=== PATIENT | male | born 1970 | race African-American/Black ===

== ENCOUNTER 2024-02-25 12:12 | Emergency (ER) | payer BC, SELFPAY ==
[2024-02-25 12:21] VITALS: BP 161/90; PULSE 91; RESP 18; TEMP 36.4; O2SAT 100
--- NOTE | 2024-02-25 12:28 | ED_ITS ---
HPI - URI/Sore Throat General Chief Complaint: Upper Respiratory Infection Stated Complaint: Cough/Numbness to Fingers on Right Hand Source: patient and RN notes reviewed Mode of arrival: ambulatory Limitations: no limitations History of Present Illness HPI Narrative: 53 y/o male presented for c/o cough, Headache,sinus pressure/congestion, fever/chills. Onset 3 days. Denies sob, wheezing, n/v/d. Taking Mucinex. MD elicited complaint: cough Related Data Home Medications ?Medication ?Instructions ?Recorded ?Confirmed ?Last Taken ?Type amlodipine 10 mg tablet 10 mg PO DAILY 02/25/24 Unknown History atorvastatin 40 mg tablet 40 mg PO QPM 02/25/24 Unknown History hydrochlorothiazide 12.5 mg tablet 12.5 mg PO Q12H 02/25/24 Unknown History losartan 100 mg tablet 100 mg PO DAILY 02/25/24 Unknown History Allergies Allergy/AdvReac Type Severity Reaction Status Date / Time No Known Allergies Allergy Verified 02/25/24 12:38 Review of Systems Review of Systems: CONSTITUTIONAL: Endorses malaise, chills, sweats, denies fever EYES: Denies visual changes, redness, or discharge ENT: Reports rhinorrhea, congestion, denies sinus pain, otalgia, sore throat CARDIOVASCULAR: Denies chest pain, palpitations, edema RESPIRATORY: Reports cough, post nasal drainage. Denies dyspnea GASTROINTESTINAL: Denies abdominal pain, nausea, vomiting, diarrhea SKIN: Denies rash or itching MUSCULOSKELETAL: Denies myalgia Exam Narrative: GENERAL: mildly Ill-appearing, nontoxic no acute distress. EYES: PERRLA, conjunctivae clear ENT: Mucous membranes moist. TM pearly treviño with dull light reflex bilaterally; no tragal tenderness. Oropharynx not erythematous without lesions or exudate, no drooling, no hoarse ness, no trismus, uvula midline. No tripod positioning, muffled voice, soft palate or pharyngeal wall bulging NECK: Supple. No lymphadenopathy CHEST: Clear to auscultation, breath sounds equal. No wheezing, rhonchi, rales, or stridor. No respiratory distress, speaks in full sentences. HEART: Regular rate and rhythm. No murmur heard. SKIN: Warm, dry, no rash. NEURO: Alert and oriented x3. PSYCH: Normal mood and affect Course Course Emergency Course: Patient is aware of diagnosis, understands and agrees to treatment plan. Anticipatory guidance given. Patient agrees to follow-up as directed and is aware of reasons to seek care at the emergency department. Portions of this record may have been created with voice recognition software Level of Care: Express Care Visit Vital Signs Vital signs: Vital Signs Temperature 97.5 F L 02/25/24 12:21 Pulse Rate 91 02/25/24 12:21 Respiratory Rate 18 02/25/24 12:21 Blood Pressure 161/90 H 02/25/24 12:21 Pulse Oximetry 100 02/25/24 12:21 Oxygen Delivery Room Air 02/25/24 12:21 Temperature 97.5 F L 02/25/24 12:21 Pulse Rate 91 02/25/24 12:21 Respiratory Rate 18 02/25/24 12:21 Blood Pressure 161/90 H 02/25/24 12:21 Pulse Oximetry 100 02/25/24 12:21 Oxygen Delivery Room Air 02/25/24 12:21 reviewed MDM - URI/Sore Throat MDM Narrative Medical decision making narrative: positive influenza. Discussed physical exam findings. Advised supportive measures and signs/symptoms to go to the ER. Pt is appropriate for outpt treatment and f/u. Differential Diagnosis Differential diagnosis: Likely upper respiratory infection, sinusitis and viral infection Discharge Plan Discharge Clinical Impression: Influenza Patient Disposition: Home, Self-Care Condition: Stable Instructions: Antibiotic Form, Influenza (ED) Additional Instructions: Your blood pressure reading was elevated (above 120/80) please follow-up with your primary care provider for further evaluation and management. If you develop worsening Blood Pressure symptoms, (headache, vision changes, dizziness, vomiting, chest pain, etc) go to the ER. Call 911. Influenza positive You should avoid crowds until you are fever free for 24 hours without the use of fever reducing medications, or the symptoms are improved Rest. Drink plenty of fluids. Tylenol 1000mg every 8 hours as needed for pain/fever Recommend Flonase spray and Zyrtec (or Claritin/Allyn) for sinus pressure/congestion over the counter Cough syrup may cause drowsiness; avoid driving or take it at night time. Coricidin HBP if you have hypertension Follow up with your primary care provider as needed Go to the ER for worsening symptoms or concerns Patient Language: Mozambican Follow-up/Referrals: UNKNOWN,DOCTOR [Primary Care Provider] - Stand Alone Forms: Work/School Release IP Time of Disposition: 12:46
[2024-02-25 12:46] LABS: EDCOVIDSCREEN Negative (Negative); EDINFLUASCREEN Positive (Negative); EDINFLUBSCREEN Negative (Negative)
[2024-02-25 12:48] LABS: EDCOVIDSCREEN Negative (Negative); EDINFLUASCREEN Positive (Negative); EDINFLUBSCREEN Negative (Negative)
--- OUTSIDE RECORDS SUMMARY | 2024-03-01 08:59 | XMS_ITS | Referral Summary ---
Author Organization [facility] Address [address] [place] [address] Care Team Providers Care Rate Analyst Name Role Phone Juan C Marie MD Primary Care Provider + Allergies No known active allergies Medications amLODIPine (NORVASC) 10 mg tabletIndicatio ns:hypertension Take 1 tablet (10 mg total) by mouth daily Active atorvastatin (LIPITOR) 40 mg tabletIndicatio ns:arterioscler otic vascular disease Take 1 tablet (40 mg total) by mouth daily Active hydrALAZINE (APRESOLINE) 25 mg tabletIndicatio ns:hypertension Take 1 tablet (25 mg total) by mouth 3 (three) times a day as needed (Systolic blood pressure (top number) 160 or higher.) 90 tablet 03/05/2023 Active Active Problems Problem Noted Date Diagnosed Date Hypertension 03/05/2023 SADE (acute kidney injury) 03/05/2023 Dizziness 03/04/2023 Immunizations Name Administration Dates Next Due Influenza, Unspecified 12/02/2022 Social History Tobacco Use Types Packs/Day Years Used Date Smoking Tobacco: Every Day Cigarettes Tobacco Cessation:Ready to Q uit: No; Counseling Given: No AUDIT-C Answer Date Recorded Q1: How often do you have a drink containing alc ohol? Never 03/05/2023 Average Number of Drinks Not on file 024 Frequency of Binge Drinking Not on file 02/08 Personal Safety Answer Date Recorded Have you ever been in or are you currently in a harmful physical or emotional relationship or is someone making you feel afraid or unsafe? Denies 08/22/2023 Sex and Gender Information Value Date Recorded Sex Assigned at Not on file Legal Sex Male 2:27 PM [id number] [employer] Gender Identity Not on file Sexual Orientation Not on file Last Filed Vital Signs Vital Sign Reading Time Taken Comments Blood Pressure 150/94 08/22/2023 7:42 AM CDT Pulse 52 08/22/2023 9:45 AM CDT Temperature 36 ??C (96.8 ??F) 08/22/2023 7:41 AM CDT Respiratory Rate 15 08/22/2023 7:42 AM CDT Oxygen Saturation 100% 08/22/2023 9:45 AM CDT Inhaled Oxygen Concentration - - Weight 88.5 kg (195 lb) 08/22/2023 7:42 AM CDT Height 175.3 cm (5' 9 ) 08/22/2023 7:42 AM CDT Body Mass Index 28.8 08/22/2023 7:42 AM CDT Plan of Treatment Not on file Insurance [facility] [place] [id number] Advance Directives For more information, please contact: [phone] * Full Code (Latest Code Status on File) Date Activated Date Inactivated Comments 03/04/2023 10:13 PM 03/05/2023 8:34 PM Care Teams Rate Analyst Relationship Specialty Start Date End Date Juan C Marie MD [address] [place] [address] [facility] [address] [place] [address] PCP - General Family Medicine 03/16/23
--- OUTSIDE RECORDS SUMMARY | 2024-03-01 08:59 | XMS_ITS | Patient Health Summary ---
Author Organization [facility] [employer] Address [address] [place] [address] Care Team Providers Care Endoscopy Nurse Name Role Phone Angélica Moser SUPERVISOR EDGING-EDGE SAWYER Unavailable [phone]- [phone] Note from [facility],non-owned Affiliates and Associated Physician Practices is amultiple site organization consisting of ambulatory clinics and hospital sitesin [place], [place], [place] and [place]. This disclosure is being madepursuant to the Care Everywhere program and may not contain all information available regarding this patient. Last updated 17.[facility] [employer] Allergies No known active allergies Medications * Be aware that medications may not be up to date on this document. Alwaysverify current medications with the patient. * nicotine (NICODERM CQ) 14 MG/24HR patch(Started 02/01/2018) Apply 1 patch to skin once daily Reasons: Nicotine Addiction * NIFEdipine CR 24hr (ADALAT CC) 90 MG tablet(Started 02/01/2018) Take 1 tablet by mouth once daily Take on an empty stomach. 2 refills remaining * hydrALAZINE (APRESOLINE) 25 MG tablet(Started 02/01/2018) Take 1 tablet by mouth 2 times daily 2 refills remaining Active Problems Problem Noted Date Diagnosed Date Hypertension 02/01/2018 CKD (chronic kidney disease) stage 3, GFR 30-59 ml/min 02/01/2018 Dizziness 01/26/2018 Hypertensive urgency 01/26/2018 Social History Tobacco Use Types Packs/Day Years Used Date Smoking Tobacco: Every Day Cigarettes Smokeless Tobacco: Never Tobacco Cessation:Ready to Q uit: No; Counseling Given: Yes Alcohol Use Standard Drinks/Week Comments No 0 (1 standard drink = 0.6 oz pur e alcohol) Sex and Gender Information Value Date Recorded Sex Assigned at Not on file Gender Identity Not on file Sexual Orientation Not on file Last Filed Vital Signs Vital Sign Reading Time Taken Comments Blood Pressure 158/100 02/01/2018 4:27 PM TELEPATHIST Pulse 86 02/01/2018 4:27 PM TELEPATHIST Temperature 36.8 ??C (98.3 ??F) 02/01/2018 4:27 PM CS T Respiratory Rate 16 01/28/2018 6:53 AM TELEPATHIST Oxygen Saturation 99% 02/01/2018 4:27 PM TELEPATHIST Inhaled Oxygen Concentration - - Weight 91.2 kg (201 lb) 02/01/2018 4:27 PM TELEPATHIST Height 175.3 cm (5' 9 ) 02/01/2018 4:27 PM TELEPATHIST Body Mass Index 29.68 02/01/2018 4:27 PM TELEPATHIST Procedures * CARDIAC EKG ORDER(Performed 01/30/2018) * CARDIAC RHYTHM STRIP ORDER(Performed 01/30/2018) * BASIC METABOLIC PANEL (CALCIUM TOTAL)(Performed 01/28/2018) Performed for Hypertensive urgency * URINE MICROSCOPIC ONLY REFLEX TO CULTURE(Performed 01/26/2018) * URINALYSIS REFLEX MICROSCOPIC REFLEX CULTURE(Performed 01/26/2018) * CULTURE URINE(Performed 01/26/2018) * XR CHEST 1VW PORTABLE(Performed 01/26/2018) Performed for Dizziness * EKG 12-LEAD(Performed 01/26/2018) Performed for Dizziness * TROPONIN I(Performed 01/26/2018) * COMPREHENSIVE METABOLIC PANEL(Performed 01/26/2018) * CBC W AUTO DIFFERENTIAL(Performed 01/26/2018) Results * CARDIAC EKG ORDER (01/30/2018 11:45 AM TELEPATHIST) Narrative 01/30/2018 11:45 AM TELEPATHIST Ordered by an unspecified provider. Scanned Document CARDIAC SERVICES ORD ERABLES * CARDIAC RHYTHM STRIP ORDER (01/30/2018 10:32 AM TELEPATHIST) Narrative 01/30/2018 10:32 AM TELEPATHIST Ordered by an unspecified provider. Scanned Document CARDIAC SERVICES ORD ERABLES * (ABNORMAL) BASIC METABOLIC PANEL (CALCIUM TOTAL) (01/28/2018 4:46 AM TELEPATHIST) [employer] Signature Glucose 102 70 - 125 mg/dL 01/28/2018 5:31 AM TELEPATHIST [facility] Sodium 139 136 - 145 mmol/L 01/28/2018 5:[address] [facility] Potassium 4.5 3.4 - 4.5 mmol/L 01/28/2018 5:[address] [facility] Chloride 104 98 - 107 mmol/L 01/28/2018 5:[address] [facility] CO2 26 22 - 29 mmol/L 01/28/2018 5:[address] [facility] Calcium 9.7 8.4 - 10.2 mg/dL 01/28/2018 5:[address] [facility] Anion Gap 14 10 - 20 mmol/L 01/28/2018 5:[address] [facility] BUN 13.9 8.4 - 25.7 mg/dL 01/28/2018 5:[address] [facility] Creatinine 1.67(H) 0.72 - 1.25 mg/dL 01/28/2018 5:[address] [facility] eGFR by MDRD 44(L) >60 mL/min/1.7 3m2 01/28/2018 5:[address] [facility] eGFR by MDRD 53(L) >60 mL/min/1.7 3m2 01/28/2018 5:[address] [facility] Blood BLOOD SPECIMEN / Unknown Lab Venipuncture / Unknown 01/28/2018 4:46 AM TELEPATHIST 01/28/2018 5:11 AM [facility] Shavon Hodgson MD LAB - CHEMISTRY PHIL HOLLOWAY [facility] Organization Address [facility]/State/[facility] Co de Phone Number [facility] [address] * (ABNORMAL) URINE MICROSCOPIC ONLY REFLEX TO CULTURE (01/26/2018 6:01 PM [facility]) Reflex Status Culture to follow 01/26/2018 6:[address] [facility] RBC UA 11-20(A) None Seen, 0-2, 3-5 # /hpf 01/26/2018 6:[address] [facility] WBC UA 11-20(A) None Seen, 0-5 # /hpf 01/26/2018 6:[address] [facility] Bacteria UA None Seen None Seen 01/26/2018 6:[address] [facility] Squamous Epithelial Cells 0-2 None Seen, 0-2, 3-5 /hpf 01/26/2018 6:[address] [facility] Mucus UA 1+ /LPF 01/26/2018 6:[address] [facility] Urine URINE SPECIMEN OBTAINED BY CLEAN CATCH PROCEDURE / Unknown Collection / Unknown 01/26/2018 6:01 PM TELEPATHIST 01/26/2018 6:06 PM [facility] Narrative [facility] - 01/26/2018 6:14 PM TELEPATHIST Gay Mendez SUPERVISOR EDGING-EDGE SAWYER LAB - URINALY SIS ORDERABLES Performing Organization Address City/State/[facility] Co de Phone Number [facility] [address] * (ABNORMAL) URINALYSIS REFLEX MICROSCOPIC REFLEX CULTURE (01/26/2018 6:01 PM [facility]) Color UA Yellow Straw, Yellow 01/26/2018 6:[address] [facility] Clarity UA Slt Cloudy(A) Clear 01/26/2018 6:[address] [facility] Glucose UA Negative Negative 01/26/2018 6:[address] [facility] Bilirubin UA Negative Negative 01/26/2018 6:[address] [facility] Ketone UA Negative Negative 01/26/2018 6:[address] [facility] Specific [place] UA 1.017 1.005 - 1.030 01/26/2018 6:[address] [facility] Blood UA Negative Negative 01/26/2018 6:[address] [facility] pH UA 6.0 5.0 - 8.0 pH 01/26/2018 6:[address] [facility] Protein UA Negative Negative 01/26/2018 6:[address] [facility] Urobilinogen UA Negative Negative mg/dL 01/26/2018 6:[address] [facility] Nitrite UA Negative Negative 01/26/2018 6:[address] [facility] Leukocyte UA 1+(A) Negative 01/26/2018 6:[address] [facility] Urine Microscopy Urine microscopy to follow 01/26/2018 6:[address] [facility] Urine URINE SPECIMEN OBTAINED BY CLEAN CATCH PROCEDURE / Unknown Collection / Unknown 01/26/2018 6:01 PM TELEPATHIST 01/26/2018 6:06 PM [facility] Narrative [facility] - 01/26/2018 6:13 PM [facility] Ascorbic Acid can cause false negative urine strip tests for blood, glucose, nitrite, and bilirubin. Gay Mendez APRNGISELA LAB - URINALY SIS ORDERABLES Performing Organization Address City/[facility]/ZIP Co de Phone Number [facility] [address] * CULTURE URINE (01/26/2018 6:01 PM TELEPATHIST) Pathologist [facility] Culture Urine No growth day 2 [facility] 01/28/2018 9:55 AM TELEPATHIST [facility] Urine URINE SPECIMEN OBTAINED BY CLEAN CATCH PROCEDURE / Unknown Collection / Unknown 01/26/2018 6:01 PM TELEPATHIST 01/26/2018 6:06 PM TELEPATHIST [facility] - MICROBI OLOGY ORDERABLES Performing Organization Address [facility] de Phone Number [facility] [address] * XR CHEST 1VW PORTABLE (01/26/2018 4:27 PM TELEPATHIST) Anatomical Region Laterality Modality Chest Radiographic Bailey ging 01/26/2018 4:36 PM TELEPATHIST Narrative 01/26/2018 4:36 PM TELEPATHIST IMAGING STUDIES: XR CHEST 1VW PORTABLE EXAM DATE/TIME: 01/26/2018 4:28 PM COMPARISON STUDIES: No previous available CLINICAL HISTORY: Dizziness and giddiness. FINDINGS AND IMPRESSION: 1.The cardiomediastinal silhouette is not enlarged. ??. 2.Lungs are clear.. 3.No pleural effusion or pneumothorax.. 4.No significant bony abnormalities. Procedure Note Andrew Nelson MD - 01/26/2018 IMAGING STUDIES: XR CHEST 1VW PORTABLE EXAM DATE/TIME: 01/26/2018 4:28 PM COMPARISON STUDIES: No previous available CLINICAL HISTORY: Dizziness and giddiness. FINDINGS AND IMPRESSION: 1.The cardiomediastinal silhouette is not enlarged. . 2.Lungs are clear.. 3.No pleural effusion or pneumothorax.. 4.No significant bony abnormalities. Gay Mendez [facility] IM AGING ORDERABLES * EKG 12-LEAD (01/26/2018 3:47 PM TELEPATHIST) [facility] Ventricular Rate 65 BPM [facility] Atrial Rate 65 BPM [facility] P-R Interval 154 ms [facility] QRS Duration ms 116 ms [facility] Q-T Interval ms 382 ms [facility] QTC Calculation (Bezet) 397 ms [facility] Calculated P [place] 21 degrees [facility] Calculated R [place] -32 degrees [facility] Calculated T [place] -32 degrees [facility] Interpretation EKG NORMAL SINUS RHYTHM WITH SINUS ARRHYTHMIA LEFT AXIS DEVIATION LEFT VENTRICULAR HYPERTROPHY WITH QRS WIDENING ABNORMAL ECG NO PREVIOUS ECGS AVAILABLE Confirmed by HARRY GUERRERO MD ([id number]), department editor PARVEZ TAVERA ([id number]) on 01/27/2018 8:41:59 AM [facility] 01/26/2018 3:47 PM TELEPATHIST 01/27/2018 8:41 AM TELEPATHIST Gay Mendez APRN-EDGE SAWYER ECG ORDERABLE S [facility] * TROPONIN I (01/26/2018 3:38 PM TELEPATHIST) [facility] Troponin I <0.012 <=0.049 ng/mL 01/26/2018 8:10 PM TELEPATHIST [facility] Blood BLOOD SPECIMEN / Unknown Venipuncture / Unknown 01/26/2018 3:38 PM TELEPATHIST 01/26/2018 7:53 PM TELEPATHIST Narrative [facility] - 01/26/2018 8:10 PM TELEPATHIST Note: Diagnosis of myocardial infarction requires symptoms of ischemia or EKG changes of ischemia and Troponin I >99th percentile of normal with <10% coefficient of variation (CV) (0.05 ng/mL) Troponin should be drawn on initial assessment and 3-6 hours later as clinically indicated. Any condition resulting in myocardial cell damage can increase cardiac troponin levels. In addition to myocardial infarction, these include but are not limited to congestive heart failure, arrhythmia, myocarditis, and non-cardiac related causes such as pulmonary embolism, renal failure and sepsis. Gay Mendez APRN-EDGE SAWYER LAB - SHEEP FARMER RY ORDERABLES [facility] [address] * (ABNORMAL) CBC W AUTO DIFFERENTIAL (01/26/2018 3:38 PM [facility]) [facility] WBC 6.1 4.0 - 10.0 x10E9/L 01/26/2018 3:[address] [facility] RBC 4.69 4.40 - 6.10 x10E12/L 01/26/2018 3:[address] [facility] Hemoglobin 13.9 13.7 - 17.5 gm/dL 01/26/2018 3:[address] [facility] Hematocrit 40.8 40.1 - 51.0 % 01/26/2018 3:[address] [facility] MCV 87.0 78.0 - 100.0 fl 01/26/2018 3:[address] [facility] MCH 29.6 25.6 - 34.0 pg 01/26/2018 3:[address] [facility] MCHC 34.1 32.3 - 36.5 gm/dL 01/26/2018 3:[address] [facility] RDW 14.1 11.6 - 14.4 % 01/26/2018 3:[address] [facility] MPV 10.2 9.4 - 12.4 fl 01/26/2018 3:[address] [facility] Platelet Count 187 163 - 369 x10E9/L 01/26/2018 3:[address] [facility] Neutrophils % 49.7 40.0 - 75.0 % 01/26/2018 3:[address] [facility] Lymphocytes % 43.9 19.3 - 53.1 % 01/26/2018 3:[address] [facility] Monocytes % 4.2(L) 4.7 - 12.5 % 01/26/2018 3:[address] [facility] Eosinophils % 1.8 0.7 - 7.0 % 01/26/2018 3:[address] [facility] Basophils % 0.2 0.1 - 1.2 % 01/26/2018 3:[address] [facility] Immature Granulocytes 0.2 0 - 0.5 % 01/26/2018 3:[address] [facility] Neutrophil Absolute 3.05 1.56 - 6.13 x10E9/L 01/26/2018 3:[address] [facility] Lymphocytes Absolute 2.69 1.18 - 3.74 x10E9/L 01/26/2018 3:[address] [facility] Monocytes Absolute 0.26 0.24 - 0.86 x10E9/L 01/26/2018 3:[address] [facility] Eosinophils Absolute 0.11 0.04 - 0.54 x10E9/L 01/26/2018 3:[address] [facility] Basophils Absolute 0.01 0.01 - 0.08 x10E9/L 01/26/2018 3:[address] [facility] Immature Granulocytes Absolute 0.01 0 - 0.03 x10E9/L 01/26/2018 3:[address] [facility] nRBC Auto 0 <=0 /100 WBC 01/26/2018 3:[address] [facility] nRBC Absolute 0.00 <=0 x10E9/L 01/26/2018 3:[address] [facility] Blood BLOOD SPECIMEN / Unknown Venipuncture / Unknown 01/26/2018 3:38 PM TELEPATHIST 01/26/2018 3:49 PM [facility] Gay Mendez SUPERVISOR EDGING-EDGE SAWYER LAB - HEMATOL OGY ORDERABLES Performing Organization Address [facility] Co de Phone Number [facility] [address] * (ABNORMAL) COMPREHENSIVE METABOLIC PANEL (01/26/2018 3:38 PM TELEPATHIST) [employer] Signature Glucose 87 70 - 125 mg/dL 01/26/2018 4:[address] [facility] Sodium 142 136 - 145 mmol/L 01/26/2018 4:[address] [facility] Potassium 4.3 3.4 - 4.5 mmol/L 01/26/2018 4:[address] [facility] Chloride 108(H) 98 - 107 mmol/L 01/26/2018 4:[address] [facility] CO2 23 22 - 29 mmol/L 01/26/2018 4:[address] [facility] Calcium 9.1 8.4 - 10.2 mg/dL 01/26/2018 4:[address] [facility] Anion Gap 15 10 - 20 mmol/L 01/26/2018 4:[address] [facility] BUN 17.7 8.4 - 25.7 mg/dL 01/26/2018 4:[address] [facility] Creatinine 1.46(H) 0.72 - 1.25 mg/dL 01/26/2018 4:[address] [facility] eGFR by MDRD 52(L) >60 mL/min/1.7 3m2 01/26/2018 4:[address] [facility] eGFR by MDRD >60 >60 mL/min/1.7 3m2 01/26/2018 4:[address] [facility] Alkaline Phosphatase 58 40 - 150 U/L 01/26/2018 4:[address] [facility] ALT 23 5 - 55 U/L 01/26/2018 4:[address] [facility] AST 19 5 - 34 U/L 01/26/2018 4:[address] [facility] Protein Total 7.2 6.4 - 8.3 gm/dL 01/26/2018 4:[address] [facility] Albumin 3.6 3.5 - 5.0 gm/dL 01/26/2018 4:[address] [facility] Globulin Total 3.6 2.6 - 4.0 gm/dL 01/26/2018 4:[address] [facility] Albumin/Globulin Ratio 1.0 0.9 - 1.6 01/26/2018 4:[address] [facility] Bilirubin Total 0.3 0.2 - 1.2 mg/dL 01/26/2018 4:[address] [facility] Blood BLOOD SPECIMEN / Unknown Venipuncture / Unknown 01/26/2018 3:38 PM TELEPATHIST 01/26/2018 3:49 PM TELEPATHIST Gay Mendez APRN-EDGE SAWYER LAB - SHEEP FARMER RY ORDERABLES Performing Organization Address [facility]/State/[facility] de Phone Number [facility] [address] Care Teams Endoscopy Nurse Relationship Specialty Start Date End Date Angélica Moser APRN-EDGE SAWYER [address] [place] [address] PCP - Attributed-BCBS Medicaid [place] 12/08/21
--- OUTSIDE RECORDS SUMMARY | 2024-03-01 08:59 | XMS_ITS | Referral Summary ---
Author Organization [facility] [employer] Address [address] [place] [address] Care Team Providers Care Business Process Manager Name Role Phone Angélica Moser UPHOLSTERY CUTTER-ROLLER MACHINE OPERATOR Unavailable [phone] Source Comments [facility] [employer],non-owned Affiliates and Associated Physician Practices is amultiple site organization consisting of ambulatory clinics and hospital sitesin [place], [place], [place] and [place]. This disclosure is being madepursuant to the Care Everywhere program and may not contain all information available regarding this patient. Last updated 17.[facility] [employer] Allergies No known active allergies Medications * Be aware that medications may not be up to date on this document. Alwaysverify current medications with the patient. Medication Sig Dispensed Refills Start Date End Date Status nicotine (NICODERM CQ) 14 MG/24HR patchIndications:Edward otine Dependence Apply 1 patch to skin once daily Reasons: Nicotine Addiction 30 patch 02/01/2018 Active NIFEdipine CR 24hr (ADALAT CC) 90 MG tablet Take 1 tablet by mouth once daily Take on an empty stomach. 30 tablet 2 02/01/2018 Active hydrALAZINE (APRESOLINE) 25 MG tablet Take 1 tablet by mouth 2 times daily 60 tablet 2 02/01/2018 Active Active Problems Problem Noted Date Diagnosed [...] Comments Blood Pressure 158/100 02/01/2018 4:27 PM BUNDLE PACKER Pulse 86 02/01/2018 4:27 PM [facility] Temperature 36.8 ??C (98.3 ??F) 02/01/2018 4:27 PM CS T Respiratory Rate 16 01/28/2018 6:53 AM BUNDLE PACKER Oxygen Saturation 99% 02/01/2018 4:27 PM BUNDLE PACKER Inhaled Oxygen Concentration - - Weight 91.2 kg (201 lb) 02/01/2018 4:27 PM BUNDLE PACKER Height 175.3 cm (5' 9 ) 02/01/2018 4:27 PM BUNDLE PACKER Body Mass Index 29.68 02/01/2018 4:27 PM BUNDLE PACKER Functional Status Functional Status Response Date of Assess ment Is person deaf or have serious hearing difficult y? No 01/28/2018 Is person blind or have serious difficulty seein g? No 01/28/2018 Does person have serious dif ficulty walking/climbing stairs? No 01/28/2018 Does person have difficulty dressing/bathing? No 01/28/2018 Does person have difficulty doing errands alone? No 01/28/2018 Cognitive Status Response Date of Assessm ent Does person have difficulty concentrating/remembering/making decisions? No 01/28/2018 Plan of Treatment Not on file Procedures Procedure Name Priority Date/Time Associated Diagnosis Comments BASIC METABOLIC PANEL (CALCIUM TOTAL) AM Draw 01/28/2018 4:46 AM [facility] Hypertensive urgency from Last 3 Months or Most Recently Relevant to Health Maintenance Results * (ABNORMAL) BASIC METABOLIC PANEL (CALCIUM TOTAL) (01/28/2018 4:46 AM [facility]) [facility] Glucose 102 70 - 125 mg/dL 01/28/2018 5:31 AM [facility] Sodium 139 136 - 145 mmol/L 01/28/2018 5:31 AM [facility] Potassium 4.5 3.4 - 4.5 mmol/L 01/28/2018 5:31 AM [facility] Chloride 104 98 - 107 mmol/L 01/28/2018 5:31 AM [facility] CO2 26 22 - 29 mmol/L 01/28/2018 5:31 AM [facility] Calcium 9.7 8.4 - 10.2 mg/dL 01/28/2018 5:31 AM [facility] Anion Gap 14 10 - 20 mmol/L 01/28/2018 5:31 AM [facility] BUN 13.9 8.4 - 25.7 mg/dL 01/28/2018 5:31 AM [facility] Creatinine 1.67(H) 0.72 - 1.25 mg/dL 01/28/2018 5:31 AM [facility] eGFR by MDRD 44(L) >60 mL/min/1.7 3m2 01/28/2018 5:31 AM [facility] eGFR by MDRD 53(L) >60 mL/min/1.7 3m2 01/28/2018 5:31 AM [facility] Blood BLOOD SPECIMEN / Unknown Lab Venipuncture / Unknown 01/28/2018 4:46 AM BUNDLE PACKER 01/28/2018 5:11 AM [facility] Shavon Hodgson MD LAB - CHEMISTRY PHIL HOLLOWAY [facility] Organization Address City/State/[facility] Co de Phone Number [facility] [address] from Last 3 Months or Most Recently Relevant to Health Maintenance Advance Directives * Full Code (Latest Code Status on File) Date Activated Date Inactivated Comments 01/26/2018 10:03 PM 01/28/2018 11:26 AM Care Teams Business Process Manager Relationship Specialty Start Date End Date Angélica Moser, UPHOLSTERY CUTTER-ROLLER MACHINE OPERATOR [address] [place] [address] PCP - Attributed-BCBS Medicaid [place] 12/08/21
--- OUTSIDE RECORDS SUMMARY | 2024-03-01 08:59 | XMS_ITS | Clinical Summary ---
Author Organization [facility] Address [address] [place] [address], [place] [address] Care Team Providers Care Housekeeper Home Name Role Phone Juan C Marie MD Primary Care Provider U navailable Allergies No known active allergies Medications atorvastatin (LIPITOR) 40 MG tablet Take 40 mg by mouth in the morning. Active hydrALAZINE 25 MG tablet Take 25 mg by mouth in the morning and 25 mg in the evening and 25 mg before bedtime. 02/01/2018 Active losartan (COZAAR) 100 MG tablet Take 100 mg by mouth 1 (one) time each day Active metoprolol succinate XL (TOPROL XL) 50 MG 24 hr tablet Take 50 mg by mouth in the morning. 01/25/2022 Active nicotine (NICODERM CQ) 14 MG/24HR Place 14 mg on the skin in the morning. 02/01/2018 Active NIFEdipine CC (ADALAT CC) 90 MG 24 hr tablet Take 90 mg by mouth in the morning. 02/01/2018 Active Active Problems No known active problems Family History Relation Status Comments Father Mother Social History Tobacco Use Types Packs/Day Years Used Date Smoking Tobacco: Every Day Cigarettes Smokeless Tobacco: Never Tobacco Cessation:Ready to Q uit: Not Asked; Counseling Given: Not Answered Alcohol Use Standard Drinks/Week Comments Not Currently 0 (1 standard drink = 0.6 oz pur e alcohol) Sex and Gender Information Value Date Recorded Sex Assigned at Not on file Legal Sex Male 3:15 PM EDT Gender Identity Not on file Sexual Orientation Not on file Plan of Treatment Health Maintenance Due Date Last Done Comments Pneumococcal Vaccine: Pediat rics (0 to 5 Years) and At-Risk Patients (6 to 64 Years) (1 of 2 - PCV) 07/23/1975 Hepatitis B Vaccine (1 of 3 - 19+ 3-dose series) 07/22 Colorectal Cancer Screening: Annual FOBT 2018 Colorectal Cancer Screening: Colonoscopy 2018 Colorectal Cancer Screening: Sigmoidoscopy 2018 Influenza Vaccine (#1) 2023 12/02/2022 Care Teams Housekeeper Home Relationship Specialty Start Date End Date Juan C Marie MD [address] [place] [address] PCP - General [facility] 09/19/23
--- OUTSIDE RECORDS SUMMARY | 2024-03-01 08:59 | XMS_ITS | Clinical Summary ---
Author Organization [facility] Address [address] [place] [address] Care Team Providers Care Preservative Filler Machine Operator Name Role Phone Juan C Marie MD [...] Administration Dates Next Due Influenza, Unspecified 12/02/2022 Surgical History Surgery Date Site/Laterality Comments ABDOMINAL SURGERY Lap elda Medical History Medical History Date Comments Hypertension Social History Tobacco Use Types Packs/Day Years [...] on file Legal Sex Male 2:27 PM EPITAXIAL REACTOR OPERATOR Gender Identity Not on file Sexual Orientation Not on file Obstetrics History Last Filed Vital Signs Vital Sign Reading [...] 08/22/2023 7:42 AM CDT Plan of Treatment Health Maintenance Due Date Last Done Comments Colon Cancer Screening-Colonoscopy 1969 Depression Screening 1969 Hepatitis C Screening 1969 Prostate Cancer Screening-PSA 1969 Pneumococcal vaccine <65 (1 of 2 - PCV) 07/23/1975 Hepatitis B Screening 07/23/1987 Regular Well Visit/Exam 18-64 07/23/1987 Zoster Vaccine (1 of 2) 07/23/2019 Influenza Vaccine (#1) 2023 12/02/2022 DTaP/Tdap/Td Vaccine (3 - Td or Tdap) 02/23/2033, 06/10/2017 [facility] Advance Directives For more information, please contact: [phone] * Full Code (Latest Code Status on File) Date Activated Date Inactivated Comments 03/04/2023 10:13 PM 03/05/2023 8:34 PM Care Teams Preservative Filler Machine Operator Relationship Specialty Start Date End Date Juan C Marie MD [address] [place] [address] [place] [address] PCP - General Family Medicine 03/16/23
--- OUTSIDE RECORDS SUMMARY | 2024-03-01 08:59 | XMS_ITS | Clinical Summary ---
Author Organization [facility] Address [address] [place] [address] Phone Care Team Providers Care Public Health Engineer Name Role Phone Juan C Marie MD Primary Care Provider + Allergies No known active allergies Medications metoprolol Succinate (TOPROL-XL) 50 MG TABLET SR 24 HR Take 1 Tablet by mouth daily. 90 Tablet 2 Active Additional Information Patient taking differently:50 mg OralPRN, Take if greater than 160, Reported on 03/23/2023 amLODIPine (NORVASC) 10 MG Tablet Take 1 Tablet by mouth daily. 90 Tablet 2 Active Additional Information Patient taking differently:10 mg OralEVERY MORNING, Reported on 03/23/2023 atorvastatin (LIPITOR) 40 MG Tablet Take 40 mg by mouth daily. Active losartan (COZAAR) 100 MG Tablet Take 100 mg by mouth nightly. Active Active Problems Problem Noted Date Diagnosed Date Colon polyps 04/05/2023 Immunizations Immunization Administration Dates Next Due TDAP Vaccine 06/10/2017 Family History Relation Name Status Comments Father Mother Social History Tobacco Use Types Packs/Day Years Used Date Smoking Tobacco: Every Day Cigarettes Smokeless Tobacco: Never Tobacco Cessation:Ready to Q uit: Not Asked; Counseling Given: Not Answered Alcohol Use Standard Drinks/Week Comments Yes 0 (1 standard drink = 0.6 oz pur e alcohol) social Sex and Gender Information Value Date Recorded Sex Assigned at Not on file Legal Sex Male 9:50 PM CDT Gender Identity Not on file Sexual Orientation Not on file Last Filed Vital Signs Vital Sign Reading Time Taken Comments Blood Pressure 140/31 04/05/2023 8:34 AM CAP SIZER Pulse 56 04/05/2023 8:34 AM CAP SIZER Temperature 36 ??C (96.8 ??F) 04/05/2023 8:34 AM CAP SIZER Respiratory Rate 19 04/05/2023 8:34 AM CAP SIZER Oxygen Saturation 100% 04/05/2023 8:34 AM CAP SIZER Inhaled Oxygen Concentration - - Weight 99.8 kg (220 lb) 03/23/2023 10:52 AM CAP SIZER Height 175.3 cm (5' 9 ) 03/23/2023 10:52 AM CAP SIZER Body Mass Index 32.49 03/23/2023 10:52 AM CAP SIZER Plan of Treatment Health Maintenance Due Date Last Done Comments Hepatitis C Virus (HCV) Screening 1969 Pneumococcal Immunization Combined (1 of 2 - PCV) 07/23/1975 Hepatitis B Immunization (1 of 3 - 19+ 3-dose series) 1988 Pneumococcal Immunization (5 0+ years) (1 of 2 - PCV) 1988 Cologuard 07/23/2019 Immunochemical Fecal Occult Blood 07/23/2019 Zoster Immunization (1 of 2) 07/23/2019 Influenza Immunization (#1) 2023 12/02/2022 SARS-COV-2 Immunization ( - season) 2023 Td Immunization Every 10 Yea rs (Adults With 1 Tdap) 02/23/2033 02/23/2023, 06/10/2017 Colonoscopy 04/05/2033 04/05/2023 Colorectal Cancer Screening 04/05/2033 Respiratory Syncytial Virus (RSV) Immunization (Adult) (1 - 1-dose 75+ series) 2044 04/05/2023 Meningococcal Immunization (ACWY) Aged Out No longer eligible b ased on patient's age to complete this topic Rotavirus Immunization Aged Out No lo nger eligible based on patient's age to complete this topic Insurance MEDICAID [place] [id number] Care Teams Public Health Engineer Relationship Specialty Start Date End Date Juan C Marie MD [address] [place] [address] [place] [address] PCP - General Family Medicine 03/02/23
--- OUTSIDE RECORDS SUMMARY | 2024-03-01 08:59 | XMS_ITS | Clinical Summary ---
Author Organization [facility] [employer] Address [address] [place] [address] Care Team Providers Care Educational Administration Teacher Name Role Phone Angélica Moser MANAGER ORGANIZATIONAL-LABORATORY SCIENTIST Unavailable [phone] Source Comments [facility] [employer],non-owned Affiliates and Associated Physician Practices is amultiple site organization consisting of ambulatory clinics and hospital sitesin [place], [place], [place] and [place]. This disclosure is being madepursuant to the Care Everywhere program and may not contain all information available regarding this patient. Last updated 17[employer] Allergies No known active allergies Medications * [...] ml/min 02/01/2018 Dizziness 01/26/2018 Hypertensive urgency 01/26/2018 Family History Medical History Relation Name Comments Hypertension Brother Hypertension Father Diabetes - Type 2 Mother Hypertension Mother Diabetes - Type 2 Sister Hypertension Sister Relation Name Status Comments Brother Alive Father Alive Mother Sister Alive Social History Tobacco Use Types Packs/Day Years [...] Comments Blood Pressure 158/100 02/01/2018 4:27 PM SAT INSTRUCTOR Pulse 86 02/01/2018 4:27 PM SAT INSTRUCTOR Temperature 36.8 ??C (98.3 ??F) 02/01/2018 4:27 PM CS T Respiratory Rate 16 01/28/2018 6:53 AM SAT INSTRUCTOR Oxygen Saturation 99% 02/01/2018 4:27 PM SAT INSTRUCTOR Inhaled Oxygen Concentration - - Weight 91.2 kg (201 lb) 02/01/2018 4:27 PM SAT INSTRUCTOR Height 175.3 cm (5' 9 ) 02/01/2018 4:27 PM SAT INSTRUCTOR Body Mass Index 29.68 02/01/2018 4:27 PM SAT INSTRUCTOR Plan of Treatment Health Maintenance Due Date Last Done Comments COLOGUARD (AGES 45-75) - COL ON CA SCREENING 1969 COLON MONITORING 1969 COLONOSCOPY - COLON CA SCREENING 1969 CT COLONOGRAPHY - COLON CA SCREENING 1969 Colorectal Cancer Screening 1969 FIT - COLON CA SCREENING 1969 FLEX SIG - COLON CA SCREENING 1969 LIPID TESTING 1969 HIV SCREENING 1984 HEPATITIS C SCREENING 07/18/1987 DTAP/TDAP/TD VACCINES (1 - Tdap) 1988 HEPATITIS B VACCINE (1 of 3 - 19+ 3-dose series) 1988 PNEUMOCOCCAL VACCINE 50+ (1 of 2 - PCV) 1988 PNEUMOCOCCAL VACCINE (1 of 2 - PCV) 1988 ZOSTER VACCINE (1 of 2) 07/23/2019 SCREENING FOR DIABETES 01/28/2021 8, 01/26/2018 COVID-19 VACCINE (1 - 2023-2 5 season) 2023 INFLUENZA VACCINE (#1) 2023 DEPRESSION SCREENING 02/08/2024 HIB VACCINE Aged Out No longer eligi ble based on patient's age to complete this topic HPV VACCINE Aged Out No longer eligi ble based on patient's age to complete this topic MENINGOCOCCAL (Group B) VACCINE Aged Out No longer eligible b ased on patient's age to complete this topic MENINGOCOCCAL VACCINE Aged Out No fede elba eligible based on patient's age to complete this topic Procedures Procedure Name Priority Date/Time Associated Diagnosis Comments BASIC METABOLIC PANEL (CALCIUM TOTAL) AM Draw 01/28/2018 4:46 AM [facility] Hypertensive urgency from Last 3 Months or Most Recently Relevant to Health Maintenance Results * (ABNORMAL) BASIC METABOLIC PANEL (CALCIUM TOTAL) (01/28/2018 4:46 AM [facility]) [facility] Glucose 102 70 - 125 mg/dL 01/28/2018 5:31 AM [facility] Sodium 139 136 - 145 mmol/L 01/28/2018 5:31 AM [facility] Potassium 4.5 3.4 - 4.5 mmol/L 01/28/2018 5:31 AM [facility] Chloride 104 98 - 107 mmol/L 01/28/2018 5:31 AM [facility] CO2 26 22 - 29 mmol/L 01/28/2018 5:31 AM [facility] Calcium 9.7 8.4 - 10.2 mg/dL 01/28/2018 5:31 AM [facility] Anion Gap 14 10 - 20 mmol/L 01/28/2018 5:31 AM [facility] BUN 13.9 8.4 - 25.7 mg/dL 01/28/2018 5:31 AM [facility] Creatinine 1.67(H) 0.72 - 1.25 mg/dL 01/28/2018 5:31 AM [facility] eGFR by MDRD 44(L) >60 mL/min/1.7 3m2 01/28/2018 5:31 AM [facility] eGFR by MDRD 53(L) >60 mL/min/1.7 3m2 01/28/2018 5:31 AM [facility] Blood BLOOD SPECIMEN / Unknown Lab Venipuncture / Unknown 01/28/2018 4:46 AM SAT INSTRUCTOR 01/28/2018 5:11 AM [facility] Shavon Hodgson MD LAB - CHEMISTRY PHIL HOLLOWAY [facility] Organization Address City/State/ZIP Co de Phone Number [facility] [address] from Last 3 Months or Most Recently Relevant to Health Maintenance Advance Directives * Full Code (Latest Code Status on File) Date Activated Date Inactivated Comments 01/26/2018 10:03 PM 01/28/2018 11:26 AM Care Teams Educational Administration Teacher Relationship Specialty Start Date End Date Angélica Moser, MANAGER ORGANIZATIONAL-LABORATORY SCIENTIST [address] [place] [address] PCP - Attributed-[facility] Medicaid [place] 12/08/21
== END 2024-02-25 12:48 | disposition home or self-care (01) ==
PROVIDERS: Emergency Provider Nurse Practitioner Family
DX: J10.1 Influenza due to other identified influenza virus with other respiratory manifestations (principal); Z20.822 Contact with and (suspected) exposure to COVID-19
CPT/HCPCS: 87426; 87804; 99202; G0463

== ENCOUNTER 2024-09-03 09:11 | Emergency (ER) | payer OTHER, SELFPAY ==
--- OUTSIDE RECORDS SUMMARY | 2024-09-03 09:25 | XMS_ITS | Clinical Summary ---
Author Organization [facility] Address [address] [place] [address] Phone Care Team Providers Care Communications Editor Name Role Phone Juan C Marie MD [...] Comments Blood Pressure 140/31 04/05/2023 8:34 AM AIRLINE MANAGERIAL SUPERVISOR Pulse 56 04/05/2023 8:34 AM AIRLINE MANAGERIAL SUPERVISOR Temperature 36 C (96.8 F) 04/05/2023 8:34 AM AIRLINE MANAGERIAL SUPERVISOR Respiratory Rate 19 04/05/2023 8:34 AM AIRLINE MANAGERIAL SUPERVISOR Oxygen Saturation 100% 04/05/2023 8:34 AM AIRLINE MANAGERIAL SUPERVISOR Inhaled Oxygen Concentration - - Weight 99.8 kg (220 lb) 03/23/2023 10:52 AM AIRLINE MANAGERIAL SUPERVISOR Height 175.3 cm (5' 9) 03/23/2023 10:52 AM AIRLINE MANAGERIAL SUPERVISOR Body Mass Index 32.49 03/23/2023 10:52 AM AIRLINE MANAGERIAL SUPERVISOR Plan of Treatment Health Maintenance Due Date Last Done Comments Hepatitis C Virus (HCV) Screening 1969 Hepatitis B Immunization (1 of 3 - 19+ 3-dose series) 1988 Pneumococcal Immunization (5 0+ years) (1 of 2 - PCV) 1988 Cologuard 2014 Immunochemical Fecal Occult Blood 2014 Zoster Immunization (1 of 2) 07/23/2019 SARS-COV-2 Immunization (1 - 2023- season) 2023 Influenza Immunization (#1) 2024 12/02/2022 Td Immunization Every 10 Yea rs (Adults With 1 Tdap) 02/23/2033 02/23/2023, 06/10/2017 Colonoscopy 04/05/2033 04/05/2023 Colorectal Cancer Screening 04/05/2033 Respiratory Syncytial Virus (RSV) Immunization (Adult) (1 - 1-dose 75+ series) 2044 PSA Discussion Completed 06/10/2017 Human Papillomavirus (HPV) Immunization Aged Out No longer eligible b ased on patient's age to complete this topic Meningococcal Immunization (ACWY) Aged Out No longer eligible b ased on patient's age to complete this topic Rotavirus Immunization Aged Out No lo nger eligible based on patient's age to complete this topic Procedures Procedure Name Priority Date/Time Associated Diagnosis Comments PSA FREE & TOTAL Routine 06/10/2017 11:4 2 AM CDT Preventative health care (Adult) from Last 3 Months or Most Recently Relevant to Health Maintenance Results * (ABNORMAL) PSA FREE & TOTAL (06/10/2017 11:42 AM CDT) Prostatic Specific Antigen, Free 1.65 ng/mL 06/10/2017 11:09 PM CDT [facility] PSA, TOTAL (PROSTATIC SPECIFIC ANTIGEN) 9.62(H) <4.00 ng/mL 06/10/2017 11:09 PM CDT [facility] PSA, % FREE 17.2 % 06/10/2017 11:09 PM CDT [facility] Comment: PSA NG/ML FREE PSA % EST PROB CANCER % 2.6- 4.0 0-27 24 4.1-10.0 0-10 56 11-15 28 16-20 20 21-25 16 >25 8 THESE ESTIMATES VARY WITH AGE, ETHNICITY, FAMILY HISTORY AND THERESA RESULTS. THE DIAGNOSTIC USEFULNESS OF % FREE PSA HAS NOT BEEN ESTABLISHED IN PATIENTS WITH TOTAL PSA BELOW 2.6 NG/ML. IN MEN WITH A PSA LEVEL ABOVE 10 NG/ML, PROSTATE CANCER RISK IS DETERMINED BY TOTAL PSA ALONE. Blood specimen (specimen) Venipuncture / Unknown 06/10/2017 11:42 AM CDT 06/10/2017 11:42 AM CDT us Linda Quiñonez APRN, CNP CHEMISTRY ORDERABLES [facility] Result [facility] [address] [place] [address], [place] from Last 3 Months or Most Recently Relevant to Health Maintenance Insurance MEDICAID [place] [id number] Care Teams Communications Editor Relationship Specialty Start Date End Date Juan C Marie MD [address] [place] [address] DR ADAN [address] [place] [address] PCP - General Family Medicine 03/02/23
--- OUTSIDE RECORDS SUMMARY | 2024-09-03 09:25 | XMS_ITS | Clinical Summary ---
Author Organization [facility] [employer] Address [address] [place] [address] Care Team Providers Care Oxidized Finish Plater Name Role Phone Unavailable Primary Care Provider Unavailabl e Source Comments [facility] [employer],non-owned Affiliates and Associated Physician Practices is amultiple site organization consisting of ambulatory clinics and hospital sitesin [place], [place], [place] and [place]. This disclosure is being madepursuant to the Care Everywhere program and may not contain all information available regarding this patient. Last updated 17.[employer] Allergies No known active allergies Medications * Be aware that medications may not be up to date on this document. Alwaysverify current medications with the patient. nicotine (NICODERM CQ) 14 MG/24HR patchIndication s:Nicotine Dependence Apply 1 patch to skin once daily Reasons: Nicotine Addiction 30 patch 8 Active NIFEdipine CR 24hr (ADALAT CC) 90 MG tablet Take 1 tablet by mouth once daily Take on an empty stomach. 30 tablet 2 8 Active hydrALAZINE (APRESOLINE) 25 MG tablet Take 1 tablet by mouth 2 times daily 60 tablet 2 8 Active Active Problems Problem Noted Date Diagnosed [...] at Not on file Legal Sex Male 7:50 AM CDT Gender Identity Not on file Sexual Orientation Not on file Last Filed Vital Signs Vital Sign Reading Time Taken Comments Blood Pressure 158/100 02/01/2018 4:27 PM NETWORK SOLUTIONS ARCHITECT Pulse 86 02/01/2018 4:27 PM NETWORK SOLUTIONS ARCHITECT Temperature 36.8 C (98.3 F) 02/01/2018 4:27 PM NETWORK SOLUTIONS ARCHITECT Respiratory Rate 16 01/28/2018 6:53 AM NETWORK SOLUTIONS ARCHITECT Oxygen Saturation 99% 02/01/2018 4:27 PM NETWORK SOLUTIONS ARCHITECT Inhaled Oxygen Concentration - - Weight 91.2 kg (201 lb) 02/01/2018 4:27 PM NETWORK SOLUTIONS ARCHITECT Height 175.3 cm (5' 9) 02/01/2018 4:27 PM NETWORK SOLUTIONS ARCHITECT Body Mass Index 29.68 02/01/2018 4:27 PM NETWORK SOLUTIONS ARCHITECT Plan of Treatment Health Maintenance Due Date [...] 50+ (1 of 2 - PCV) 1988 ZOSTER VACCINE (1 of 2) 07/23/2019 SCREENING FOR DIABETES 01/28/2021 8, 01/26/2018 COVID-19 VACCINE ( - 2023-2 5 season) 2023 DEPRESSION SCREENING 02/08/2024 INFLUENZA VACCINE (#1) 2024 HIB VACCINE Aged Out No longer eligi ble based on patient's age to complete this topic HPV VACCINE Aged Out No longer eligi ble based on patient's age to complete this topic MENINGOCOCCAL (Group B) VACCINE SHARED DECISION-MAKING Aged Out No longer eligible based on patient's age to complete this topic MENINGOCOCCAL GROUPS A/C/Y/W VACCINE Aged Out No longer eligible b ased on patient's age to complete this topic Procedures Procedure Name Priority Date/Time Associated Diagnosis Comments BASIC METABOLIC PANEL (CALCIUM TOTAL) AM Draw 01/28/2018 4:46 AM [facility] Hypertensive urgency from Last 3 Months or Most Recently Relevant to Health Maintenance Results * (ABNORMAL) BASIC METABOLIC PANEL (CALCIUM TOTAL) (01/28/2018 4:46 AM [facility]) [facility] Glucose 102 70 - 125 mg/dL 01/28/2018 5:31 AM [facility] Sodium 139 136 - 145 mmol/L 01/28/2018 5:31 AM [facility] Potassium 4.5 3.4 - 4.5 mmol/L 01/28/2018 5:31 AM [facility] Chloride 104 98 - 107 mmol/L 01/28/2018 5:31 AM [facility] CO2 26 22 - 29 mmol/L 01/28/2018 5:31 AM [facility] Calcium 9.7 8.4 - 10.2 mg/dL 01/28/2018 5:31 AM [facility] Anion Gap 14 10 - 20 mmol/L 01/28/2018 5:31 AM [facility] BUN 13.9 8.4 - 25.7 mg/dL 01/28/2018 5:31 AM [facility] Creatinine 1.67(H) 0.72 - 1.25 mg/dL 01/28/2018 5:31 AM [facility] eGFR by MDRD 44(L) >60 mL/min/1.7 3m2 01/28/2018 5:31 AM [facility] eGFR by MDRD 53(L) >60 mL/min/1.7 3m2 01/28/2018 5:31 AM [facility] Blood BLOOD SPECIMEN / Unknown Lab Venipuncture / Unknown 01/28/2018 4:46 AM NETWORK SOLUTIONS ARCHITECT 01/28/2018 5:11 AM [facility] us Shavon Hodgson MD LAB - CHEMISTRY ORDERABLES Fin al Result [facility] [address] [place] [address], [place] from Last 3 Months or Most Recently Relevant to Health Maintenance Insurance MEDICAID - [place] MEDICAID - [facility] MEDICAID [facility] Advance Directives * Full Code (Latest Code Status on File) Date Activated Date Inactivated Comments 01/26/2018 10:03 PM 01/28/2018 11:26 AM
--- OUTSIDE RECORDS SUMMARY | 2024-09-03 09:25 | XMS_ITS | Clinical Summary ---
Author Organization [facility] Address [address] [place] [address], [place] [address] Care Team Providers Care Director Reactor Projects Name Role Phone Juan C Marie MD [...] Maintenance Due Date Last Done Comments Hepatitis B Vaccine (1 of 3 - 19+ 3-dose series) 07/22 Pneumococcal Vaccine: 50+ Years (1 of 2 - PCV) 989 Colorectal Cancer Screening: Annual FOBT 2018 Colorectal Cancer Screening: Colonoscopy 2018 Colorectal Cancer Screening: Sigmoidoscopy 2018 Influenza Vaccine (#1) 2024 12/02/2022 Care Teams Director Reactor Projects Relationship Specialty Start Date End Date Juan C Marie MD [address] [place] [address] PCP - General Dental Esl Tutor 09/19/23
--- OUTSIDE RECORDS SUMMARY | 2024-09-03 09:25 | XMS_ITS | Clinical Summary ---
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 Gender Identity Not on file Sexual Orientation Not on file Obstetrics History Last Filed Vital Signs Vital Sign Reading Time Taken Comments Blood Pressure 150/94 08/22/2023 7:42 AM CDT Pulse 52 08/22/2023 9:45 AM CDT Temperature 36 C (96.8 F) 08/22/2023 7:41 AM CDT Respiratory Rate 15 08/22/2023 7:42 AM CDT Oxygen Saturation 100% 08/22/2023 9:45 AM CDT Inhaled Oxygen Concentration - - Weight 88.5 kg (195 lb) 08/22/2023 7:42 AM CDT Height 175.3 cm (5' 9) 08/22/2023 7:42 AM CDT Body Mass Index 28.8 08/22/2023 7:42 AM CDT Plan of Treatment Health Maintenance Due Date Last Done Comments Colon Cancer Screening-Colonoscopy 1969 Depression Screening 1969 Hepatitis C Screening 1969 Prostate Cancer Screening-PSA 1969 Hepatitis B Screening 07/23/1987 Regular Well Visit/Exam 18-64 07/23/1987 Pneumococcal vaccine <65 (1 of 2 - PCV) 1988 Zoster Vaccine (1 of 2) 07/23/2019 Influenza Vaccine (#1) 2024 12/02/2022 DTaP/Tdap/Td Vaccine (3 - Td or Tdap) 02/23/2033, 06/10/2017 Insurance [facility] Advance Directives For more information, please contact: [phone] * Full Code (Latest Code Status on File) Date Activated Date Inactivated Comments 03/04/2023 10:13 PM 03/05/2023 8:34 PM Care Teams Entry Operator Relationship Specialty Start Date End Date Juan C Marie MD [address] [place] [address] [place] [address] PCP - General Family Medicine 03/16/23
--- OUTSIDE RECORDS SUMMARY | 2024-09-03 09:25 | XMS_ITS | Referral Summary ---
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
--- NOTE | 2024-09-03 09:40 | ED_ITS ---
HPI - Skin/Abscess/Foreign Bdy General Chief complaint: Skin/Abscess/Foreign Body Stated complaint: right shoulder History of Present Illness HPI narrative: Patient is a 54-year-old male, past medical history significant for hypertension hyperlipidemia, presents to [facility] with an insect bite to the right shoulder, noticed this morning upon waking. He believes he may have scratched through the night. He does not recall anything stinging or biting him at any point. He has no discomfort associated per reports intense itching. This morning his significant other applied alcohol to the area topically to leave the itching but no other modifying factors and attempted. He denies any additional complaints or any other skin surface similar eruptions. Related Data Home Medications ?Medication ?Instructions ?Recorded ?Confirmed ?Last Taken ?Type amlodipine 10 mg tablet 10 mg PO DAILY 02/25/24 Unknown History atorvastatin 40 mg tablet 40 mg PO QPM 02/25/24 Unknown History losartan 100 mg tablet 100 mg PO DAILY 02/25/24 Unknown History Allergies Allergy/AdvReac Type Severity Reaction Status Date / Time No Known Allergies Allergy Verified 02/25/24 12:38 Review of Systems Integumentary/Breasts: Skin/Breast: Reports as per HPI Exam Const: General: cooperative, healthy appearing, comfortable, no acute distress and well developed Nutritional Appearance: well nourished and overweight Orientation/consciousness: patient oriented x3 HENMT: Head: normal to inspection, normocephalic and atraumatic Face/Nose/Sinus: Normal external nose present and Normal nares present Face and sinus: normal facial exam, sinuses nontender and face symmetric Mouth: Yes Normal oral and palatal mucosa present, Yes lip normal and Yes tongue normal Teeth and gingiva: dentition normal Throat: posterior oropharynx normal Eyes: General: appearance normal, both eyes and all related structures Visual Ho: normal visual ho by confrontation Alignment and Position: alignment normal Eyelids: eyelids normal Conjunctivae: conjunctivae normal Sclera: sclerae normal EOM: EOMs intact bilaterally Neck: Neck: normal visual inspection, full ROM, no lymphadenopathy, no meningeal signs, trachea midline and supple Resp: Effort & Inspection: normal respiratory effort Auscultation: clear to auscultation bilaterally Cardio: Rate: regular rate Rhythm: regular rhythm Heart sounds: S1 normal heart sound present and S2 normal heart sound present Skin: Other: patient has a 2 cm welted annular area to the right shoulder, a central abrasion is noted. There is no drainage, no bleeding, no tenderness to palpation, no lymphangitis. Neuro: General: oriented to person, oriented to place, oriented to time, patient oriented x3 and gait normal Cranial nerves: Yes CN's II-XII intact bilaterally Speech: normal speech Extrem: General: normal to inspection, full ROM and capillary refill normal Course Course Emergency Course: Patient has an eruption that is consistent with an insect bite. He has no tenderness or concerns for cellulitis. Will prescribe a topical medium potency steroid, triamcinolone, [id number] antihistamines are also encouraged for added symptom relief, follow-up with PCP if symptoms not improving in 3-5 days. Level of Care: Express Care Visit (53004) MDM - Skin/Abscess/Foreign Bdy MDM Narrative Medical decision making narrative: triamcinolone, Zyrtec or Claritin, PCP follow-up Differential Diagnosis Differential diagnosis: Likely abscess of skin or subcutaneous tissue, urticaria, cellulitis, insect bites, impetigo and contact dermatitis Discharge Plan Discharge Clinical Impression: Insect bite Patient Disposition: Home Condition: Stable Instructions: Antibiotic Form, Insect Bite or Sting (ED) Additional Instructions: APPLY TRIAMCINOLONE CREAM DIRECTED. YOU MAY TAKE [id number] ANTIHISTAMINE SUCH ZYRTEC OR CLARITIN ADDITIONALLY. FOLLOW-UP WITH YOUR PRIMARY DOCTOR IF YOU DEVELOPS ANY PAIN AT THE SITE, OR IF YOUR SYMPTOMS ARE NOT IMPROVING IN 3-5 DAYS Patient Language: Cymraes Prescriptions: New triamcinolone acetonide 0.1 % cream 1 applic topical TID PRN (Reason: ITCHING) Qty: 30 0RF No Action losartan 100 mg tablet 100 mg PO DAILY atorvastatin 40 mg tablet 40 mg PO QPM amlodipine 10 mg tablet 10 mg PO DAILY Follow-up/Referrals: PHYSICIAN,EARLY CHILDHOOD LEAD TEACHER [Primary Care Provider] - Time of Disposition: 09:46
== END 2024-09-03 09:56 | disposition home or self-care (01) ==
PROVIDERS: Emergency Provider Nurse Practitioner Family
DX: S40.261A Insect bite (nonvenomous) of right shoulder, initial encounter (principal); W57.XXXA Bitten or stung by nonvenomous insect and other nonvenomous arthropods, initial encounter
CPT/HCPCS: 99213; G0463

== ENCOUNTER 2024-10-31 09:47 | Emergency (ER) | payer OTHER, SELFPAY ==
--- NOTE | 2024-10-31 09:55 | ED_ITS ---
HPI - General Adult General Chief complaint: Urogenital-Male Stated complaint: BLOOD IN URINE Source: patient Mode of arrival: ambulatory Limitations: no limitations History of Present Illness HPI narrative: Pt is a 54 y/o male presenting with c/o hematuria, onset this morning. Does report single episode of vomiting prior to onset of hematuria. Also reports dysuria at time of onset of hematuria, denies current dysuria. Reports hx of same 6 months ago when dx with kidney stone. No PCP. 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 No additional complaints. Related Data Home Medications ?Medication ?Instructions ?Recorded ?Confirmed ?Last Taken ?Type amlodipine 10 mg tablet 10 mg PO DAILY 02/25/24 Unk nown History atorvastatin 40 mg tablet 40 mg PO QPM 02/25/24 Unkno wn History losartan 100 mg tablet 100 mg PO DAILY 02/25/24 Un known History Allergies Allergy/AdvReac Type Severity Reaction Status Date / Time No Known Allergies Allergy Verified 10/31/24 10:04 Review of Systems Review of Systems: CONSTITUTIONAL: Denies body aches, fever, chills, or sweats. EYES: Denies visual changes, redness, or discharge. ENT: Denies rhinorrhea, congestion, sore throat, or otalgia. CARDIOVASCULAR: Denies chest pain, palpitations, or edema. RESPIRATORY: Denies cough or dyspnea. GASTROINTESTINAL: Denies abdominal pain, nausea, vomiting, or diarrhea. GENITOURINARY: Reports dysuria, hematuria. SKIN: Denies rash, itching, or wounds. MUSCULOSKELETAL: Denies back pain, joint pain, or myalgia. NEUROLOGIC: Denies headache, numbness, tingling, or weakness. PSYCH: Denies depression or anxiety. All systems reviewed & are unremarkable except as noted in HPI and below Exam Narrative: GENERAL: Well-appearing, well-nourished, and in no acute distress. HEAD: Normocephalic, atraumatic. EYES: EOMI. No redness or drainage. Conjunctivae normal. ENT: Mucous membranes pink and moist. NECK: Normal AROM. Supple. CHEST: No respiratory distress. HEART: Regular rate ABDOMEN: Soft, nontender, nondistended, normal active bowel sounds. No CVAT EXTREMITIES: Normal range of motion SKIN: Warm, dry, no rash. Capillary refill normal. Normal skin turgor. NEURO: No focal deficits. Alert and oriented x3. Gait steady. PSYCH: Normal affect. No signs of depression or anxiety. Course Course Level of Care: Express Care Visit Vital Signs Vital signs: Vital Signs Temperature 97 F L 10/31/24 09:56 Pulse Rate 76 10/31/24 09:56 Respiratory Rate 16 10/31/24 09:56 Blood Pressure 119/82 10/31/24 09:56 Pulse Oximetry 100 10/31/24 09:56 Temperature 97 F L 10/31/24 09:56 Pulse Rate 76 10/31/24 09:56 Respiratory Rate 16 10/31/24 09:56 Blood Pressure 119/82 10/31/24 09:56 Pulse Oximetry 100 10/31/24 09:56 Medical Decision Making MDM Narrative Medical decision making narrative: Pt presenting with painless hematuria after single episode of vomiting and dysuria. No CVAT, VSS. Likely passed a stone but unable to rule out additional nephro etiologies. No family hx of kidney disease. Given lack of PCP and current complaints, I recommended he be transferred to ER for further diagnostic work up. Pt declined transfer, AMA paperwork completed. Vital Signs Vital Signs: Vital Signs Temperature 97 F L 10/31/24 09:56 Pulse Rate 76 10/31/24 09:56 Respiratory Rate 16 10/31/24 09:56 Blood Pressure 119/82 10/31/24 09:56 Pulse Oximetry 100 10/31/24 09:56 Temperature 97 F L 10/31/24 09:56 Pulse Rate 76 10/31/24 09:56 Respiratory Rate 16 10/31/24 09:56 Blood Pressure 119/82 10/31/24 09:56 Pulse Oximetry 100 10/31/24 09:56 Lab Data Lab results reviewed: Yes I reviewed the patient's lab results. Labs: Lab Results 10/31/24 Range/Units 09:56 POC Urine Color Yellow POC Urine Clarity Cloudy POC Urine pH 5.5 POC Ur Specif [place] 1.020 POC Urine Protein Negative (Negative) POC Ur Glucose (UA) Negative (Negative) POC Urine Ketones Negative (Negative) POC Urine Blood 3+ (Negative) POC Urine Nitrite Negative (Negative) POC Urine Bilirubin Negative (Negative) POC Urine Urobilinogen 0.2 POC U Leukocyte Esteras Negative (Negative) Discharge Plan Discharge Clinical Impression: Hematuria Qualifiers: Hematuria type: gross Qualified Code(s): R31.0 - Gross hematuria Patient Disposition: Left Against Medical Advice Condition: Stable Instructions: Hematuria (ED) Additional Instructions: Go straight to ER should your symptoms become worse or should any new symptoms develop Patient Language: Paraguayan Prescriptions: No Action triamcinolone acetonide 0.1 % cream 1 applic topical TID PRN (Reason: ITCHING) Qty: 30 0RF losartan 100 mg tablet 100 mg PO DAILY atorvastatin 40 mg tablet 40 mg PO QPM amlodipine 10 mg tablet 10 mg PO DAILY Follow-up/Referrals: PHYSICIAN,PHARMACIST INTERN [Primary Care Provider, Internal Medicine] - 11/01/24 Stand Alone Forms: Work/School Release IP
[2024-10-31 09:56] VITALS: BP 119/82; PULSE 76; RESP 16; TEMP 36.1; O2SAT 100
[2024-10-31 10:47] LABS: EDUAAPPEAR Cloudy; EDUABILI Negative (Negative); EDUABLOOD 3+ (Negative); EDUACOLOR1 Yellow; EDUAGLUCOSE Negative (Negative); EDUAKETONE Negative (Negative); EDUALEUKO Negative (Negative); EDUANITRATE Negative (Negative); EDUAPH 5.5; EDUAPROTEIN Negative (Negative); EDUASPGRAVITY 1.020; EDUAUROBILI 0.2
== END 2024-10-31 10:58 | disposition left against medical advice (07) ==
PROVIDERS: Emergency Provider Registered Nurse
DX: R31.0 Gross hematuria (principal)
CPT/HCPCS: 81003; 87086; 99213; G0463

== ENCOUNTER 2024-11-04 10:12 | Emergency (ER) | payer OTHER, SELFPAY ==
--- NOTE | ~2024-11-04 | CT_ITS ---
CT ABDOMEN AND PELVIS WITHOUT CONTRAST Clinical History: hematuria, poss stone Comparison: None Technique: Unenhanced axial images lung bases to symphysis pubis Coronal, sagittal reformats CT images acquired with automatic exposure control for dose reduction DLP: 411 mGy-cm Findings: Without intravenous contrast, sensitivity for detecting visceral parenchymal abnormalities decreased. Lung bases: Clear. Visualized heart and pericardium: Unremarkable. Liver: Enlarged. Steatosis. Gallbladder: Removed. Spleen: Unremarkable. Pancreas: Unremarkable. Adrenal glands: Unremarkable. Kidneys: Right kidney- No hydronephrosis. No renal stones. Left kidney- No hydronephrosis. No renal stones. Small exophytic probable cyst below for radiation Distal esophagus/stomach: Gastric lipoma. Small bowel loops: Normal caliber and wall thickness. A few small air-fluid levels. Colon: Normal caliber and wall thickness. Normal RLQ appendix. Nodes: No enlarged nodes. Peritoneum: No ascites. No free intraperitoneal air. Urinary bladder: Unremarkable. Prostate: Unremarkable. Bones: No acute bony abnormality. Soft tissues: Unremarkable. Unopacified abdominal aorta: No aneurysmal dilatation. Mild atherosclerotic disease IMPRESSION: 1. No renal stones or hydronephrosis. 2. Mild enteritis not excluded. 3. No other acute abnormality. Reviewed, dictated and finalized at location R.
--- OUTSIDE RECORDS SUMMARY | 2024-11-04 10:14 | XMS_ITS | Clinical Summary ---
Author Organization [facility] Address [address] [place] [address] Care Team Providers Care Change Agent Name Role Phone Unavailable Primary Care Provider Unavailabl e Source Comments [facility],non-owned Affiliates and Associated Physician Practices is amultiple site organization consisting of ambulatory clinics and hospital sitesin [place], [place], [place] and [place]. This disclosure is being madepursuant to the Care Everywhere program and may not contain all information available regarding this patient. Last updated 17.[facility] Allergies No known active allergies Medications * [...] Comments Blood Pressure 158/100 02/01/2018 4:27 PM MOLD FILLING OPERATOR Pulse 86 02/01/2018 4:27 PM MOLD FILLING OPERATOR Temperature 36.8 C (98.3 F) 02/01/2018 4:27 PM MOLD FILLING OPERATOR Respiratory Rate 16 01/28/2018 6:53 AM MOLD FILLING OPERATOR Oxygen Saturation 99% 02/01/2018 4:27 PM MOLD FILLING OPERATOR Inhaled Oxygen Concentration - - Weight 91.2 kg (201 lb) 02/01/2018 4:27 PM MOLD FILLING OPERATOR Height 175.3 cm (5' 9) 02/01/2018 4:27 PM MOLD FILLING OPERATOR Body Mass Index 29.68 02/01/2018 4:27 PM MOLD FILLING OPERATOR Plan of Treatment Health Maintenance Due Date [...] 07/23/2019 SCREENING FOR DIABETES 01/28/2021 8, 01/26/2018 DEPRESSION SCREENING 02/08/2024 COVID-19 VACCINE ( - 2023-2 5 season) 2024 INFLUENZA VACCINE (#1) 2024 HIB VACCINE Aged [...] TOTAL) AM Draw 01/28/2018 4:46 AM [facility] Hypertensive urgency from Last 3 Months or Most Recently Relevant to Health Maintenance Results * (ABNORMAL) BASIC METABOLIC PANEL (CALCIUM TOTAL) (01/28/2018 4:46 AM [facility]) [facility] Glucose 102 70 - 125 mg/dL 01/28/2018 5:31 AM [facility] Sodium 139 136 - 145 mmol/L 01/28/2018 5:31 AM [facility] Potassium 4.5 3.4 - 4.5 mmol/L 01/28/2018 5:31 AM [facility] Chloride 104 98 - 107 mmol/L 01/28/2018 5:31 AM [facility] CO2 26 22 - 29 mmol/L 01/28/2018 5:31 AM [facility] Calcium 9.7 8.4 - 10.2 mg/dL 01/28/2018 5:31 AM [facility] Anion Gap 14 10 - 20 mmol/L 01/28/2018 5:31 AM [facility] BUN 13.9 8.4 - 25.7 mg/dL 01/28/2018 5:31 AM [facility] Creatinine 1.67(H) 0.72 - 1.25 mg/dL 01/28/2018 5:31 AM [facility] eGFR by MDRD 44(L) >60 mL/min/1.7 3m2 01/28/2018 5:31 AM [facility] eGFR by MDRD 53(L) >60 mL/min/1.7 3m2 01/28/2018 5:31 AM [facility] Blood BLOOD SPECIMEN / Unknown Lab Venipuncture / Unknown 01/28/2018 4:46 AM MOLD FILLING OPERATOR 01/28/2018 5:11 AM [facility] us Shavon Hodgson MD LAB - CHEMISTRY ORDERABLES Fin al Result [facility] [address] [place] [address], [place] from Last 3 Months or Most Recently Relevant to Health Maintenance Insurance MEDICAID - [place] MEDICAID - OUT OF [facility] MEDICAID [facility] MEDICAID Advance Directives * Full Code (Latest Code Status on File) Date Activated Date Inactivated Comments 01/26/2018 10:03 PM 01/28/2018 11:26 AM
--- OUTSIDE RECORDS SUMMARY | 2024-11-04 10:14 | XMS_ITS | Clinical Summary ---
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
--- OUTSIDE RECORDS SUMMARY | 2024-11-04 10:14 | XMS_ITS | Clinical Summary ---
Author Organization [facility] Address [address] [place] [address], [place] [address] Care Team Providers Care Finisher Denture Name Role Phone Juan C Marie MD [...] Influenza Vaccine (#1) 2024 12/02/2022 Care Teams Finisher Denture Relationship Specialty Start Date End Date Juan C Marie MD [address] [place] [address] PCP - General Dental Alarm Signaler 09/19/23
[2024-11-04 10:20] VITALS: BP 140/98; PULSE 63; RESP 18; TEMP 36.6; O2SAT 99
--- NOTE | 2024-11-04 10:49 | ED_ITS ---
HPI - Male Genitourinary General Chief complaint: Urogenital-Male Stated complaint: hematuria Time Seen by Provider: 11/04/24 10:33 Source: patient and family Mode of arrival: ambulatory Limitations: no limitations History of Present Illness HPI Narrative: This is a 54-year-old male with history of hypertension who presents to the ED for hematuria and dysuria. Patient states that since Tuesday, he has been hav ing dysuria with that he did have a single episode of hematuria. He did have this 1 time previously 6 months ago when he was found have a kidney stone. Denies any abdominal or flank pain at this time. Denies fevers, chills, nausea, vomiting. He is a current smoker half pack per day. Related Data Home Medications ?Medication ?Instructions ?Recorded ?Confirmed ?Last Taken ?Type amlodipine 10 mg tablet 10 mg PO DAILY 02/25/24 Unk nown History atorvastatin 40 mg tablet 40 mg PO QPM 02/25/24 Unkno wn History losartan 100 mg tablet 100 mg PO DAILY 02/25/24 Un known History Allergies Allergy/AdvReac Type Severity Reaction Status Date / Time No Known Allergies Allergy Verified 11/04/24 10:23 Review of Systems Review of Systems: Gen.: Denies fevers or chills Eyes: Denies eye pain or visual change ENT: Denies congestion Respiratory: Denies shortness of breath or cough CV: Denies chest pain or palpitations GI: Denies abdominal pain nausea, emesis or diarrhea as per HPI Musculoskeletal: Denies back pain or muscle pain Neuro: Denies numbness, tingling, weakness or focal weakness Skin: Denies rash Except as documented, all other systems reviewed and negative Exam Narrative: APPEARANCE: No acute distress, nontoxic, resting in bed EYES: EOMI HEENT: Normocephalic, atraumatic, OMM RESPIRATORY: No respiratory distress Clear to auscultation bilaterally with no rhonchi wheezing or rales. CARDIOVASCULAR: Regular rate and rhythm without murmurs rubs or gallops. ABDOMINAL: Soft, nontender, nondistended, no rebound or guarding MUSCULOSKELETAl: Moves all extremities. No clubbing, cyanosis or edema. NEURO: Awake and alert. Following commands, speech normal, no focal deficits SKIN:: Warm, dry. No rashes lesions or abrasions PSYCHIATRIC: Normal affect/mood, Course Vital Signs Vital signs: Vital Signs Temperature 97.8 F 11/04/24 10:20 Pulse Rate 63 11/04/24 10:20 Respiratory Rate 18 11/04/24 10:20 Blood Pressure 140/98 H 11/04/24 10:20 Pulse Oximetry 99 11/04/24 10:20 Oxygen Delivery Room Air 11/04/24 10:20 Temperature 97.8 F 11/04/24 10:20 Pulse Rate 84 11/04/24 12:54 Respiratory Rate 17 11/04/24 12:54 Blood Pressure 150/72 H 11/04/24 12:54 Pulse Oximetry 99 11/04/24 12:54 Oxygen Delivery Room Air 11/04/24 10:20 MDM - Male Genitourinary MDM Narrative Medical decision making narrative: 54-year-old male presenting for hematuria. On initial evaluation, patient was in no acute distress and afebrile, hemodynamically stable. Abdomen is soft nontender. He had negative CVA tenderness bilaterally. UA did show blood without rbc's. CT abdomen/pelvis was obtained and was negative for acute process. Patient is a current smoker, he may have a developing bladder mass. Because of this he was given a referral to Urology for further evaluation and possible cystoscopy. I discussed this with the patient and the family and they are agreeable to this plan. Given strict return precautions. Differential Diagnosis Differential diagnosis: Likely urinary tract infection, urethritis and other (ureterolithiasis,) Medical Records Attestation: I reviewed the patient's medical records. Lab Data Attestation: I reviewed the patient's lab results. Labs: Lab Results 11/04/24 Range/Units 10:43 Urine Color Yellow (Yellow) Urine Appearance Clear (Clear) Urine pH 5.5 (5.0-9.0) Ur Specific [place] 1.018 (1.001-1.035) Urine Protein Negative (Negative) mg/dL Urine Glucose (UA) Negative (Negative) mg/dL Urine Ketones Negative (Negative) mg/dL Ur Blood (Man) 1+ H (Negative) Urine Nitrate Negative (Negative) Urine Bilirubin Negative (Negative) Urine Urobilinogen 0.2 (<2.0) mg/dL Leukocyte Esterase Rfl Negative (Negative) BEATRIZ/UL Urine RBC 0-2 (0-2) /hpf Urine WBC 0-5 (0-3) /hpf Ur Squamous Epith Cells None seen (Few) /hpf Urine Bacteria None seen /hpf Urine Casts 0-2 Imaging Data Attestation: I personally reviewed and interpreted this imaging study as follows: My impression: Impressions Abdomen/Pelvis CT 11/04/24 12:30 IMPRESSION: 1. No renal stones or hydronephrosis. 2. Mild enteritis not excluded. 3. No other acute abnormality. Discharge Plan Discharge Clinical Impression: Hematuria Qualifiers: Hematuria type: other microscopic Qualified Code(s): R31.29 - Other microscopic hematuria Patient Disposition: Home Condition: Stable Instructions: Antibiotic Form, Hematuria (ED) Additional Instructions: CT scan showed no evidence of a kidney stone or masses. He should follow-up with urology for a possible cystoscopy to further evaluate the blood in your urine. Return to the ED for any new or worsening symptoms. Patient Language: Marshallese Prescriptions: No Action triamcinolone acetonide 0.1 % cream 1 applic topical TID PRN (Reason: ITCHING) Qty: 30 0RF losartan 100 mg tablet 100 mg PO DAILY atorvastatin 40 mg tablet 40 mg PO QPM amlodipine 10 mg tablet 10 mg PO DAILY Follow-up/Referrals: PHYSICIAN,GUN STOCK CHECKER [Primary Care Provider, Internal Medicine] Ubaldo Zuñiga MD [Physician, Urology]
[2024-11-04 11:12] LABS: Add Urine Microscopic? YES; Appearance Urine Clear (Clear); Glucose Urine UA Negative (Negative); Leukocyte Esterase Ur Negative LEU/UL (Negative); Nitrate Urine Negative (Negative); Non Pathogenic Casts 0-2; Specific Grav Ur 1.018 (1.001-1.035)
[2024-11-04 12:54] VITALS: BP 150/72; PULSE 84; RESP 17; O2SAT 99
== END 2024-11-04 12:56 | disposition home or self-care (01) ==
PROVIDERS: Emergency Provider Student in an Organized Health Care Education/Training Program
DX: R31.29 Other microscopic hematuria (principal)
CPT/HCPCS: 74176; 81001; 99284